=== PATIENT | male | born 1980 | race Caucasian/White ===

== ENCOUNTER 2020-07-12 15:24 | Emergency (ER) | payer MEDICAID ==
[~2020-07-12] VITALS: Ht 170.2 cm; Wt 65.8 kg
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
--- NOTE | 2020-07-12 15:55 | Emergency Room Report ---
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 Patient reports that he was given hydrocodone however did not take one yesterday did not work. Also reports he does not want any pain medication at ED. Has not been able to follow-up with orthopedist yet. Denies any numbness and tingling. Denies any saddle paresthesia, urinary bowel incontinence. Reports that he fell few weeks ago and started having more pain since. Has been bearing weight on the affected side. Request crutches. Denies chest pain, shortness of breath. Allergies: Coded Allergies: No Known Allergies (Unverified , 07/12/20) COVID-19 Screening Contact w/high risk pt: No Experienced COVID-19 symptoms?: No COVID-19 Testing performed [employer] SPECIALIST: No Patient History Past Medical History: see triage record Past Surgical History: none Pertinent Family History: none Immunizations: UTD Reviewed Nursing Documentation: PMH: Agreed; PSxH: Agreed Nursing Documentation-PMH Past Medical History: No History, Except For Review of Systems All Other Systems: negative except mentioned in HPI Physical Exam Vital Signs Date Time Temp Pulse Resp B/P (MAP) Pulse Ox O2 Delivery O2 Flow Rate FiO2 07/12/20 15:28 98.1 91 18 98/63 (75) 96 Room Air Sp02 EP Interpretation: reviewed, normal General Appearance: no apparent distress, alert, GCS 15, non-toxic Head: normocephalic, atraumatic Eyes: bilateral eye normal inspection, bilateral eye PERRL ENT: hearing grossly normal, normal pharynx, no angioedema, normal voice Neck: full range of motion, supple/symm/no masses Respiratory: chest non-tender, lungs clear, normal breath sounds, no rhonchi, no respiratory distress, no retraction, no accessory muscle use, no wheezing, speaking full sentences Cardiovascular #1: regular rate, rhythm, no edema Cardiovascular #2: 2+ carotid (R), 2+ carotid (L), 2+ radial (R), 2+ radial (L), 2+ dorsalis pedis (R), 2+ dorsalis pedis (L) Gastrointestinal: normal bowel sounds, non tender, soft, non-distended, no guarding, no rebound Genitourinary: no CVA tenderness Musculoskeletal: back normal, no calf tenderness, pelvis stable, non-tender Neurologic: alert, motor strength/tone normal, oriented x3, sensory intact, responsive, speech normal Psychiatric: judgement/insight normal, memory normal, mood/affect normal, no suicidal/homicidal ideation Skin: no rash Lymphatic: no adenopathy Medical Decision Making PA Attestation All diagnoses and treatment plans were reviewed and discussed with my supervising physician Dr. 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 Patient reports that he was given hydrocodone however did not take one yesterday did not work. Also reports he does not want any pain medication at ED. Has not been able to follow-up with orthopedist yet. Denies any numbness and tingling. Denies any saddle paresthesia, urinary bowel incontinence. Reports that he fell few weeks ago and started having more pain since. Has been bearing weight on the affected side. Request crutches. Denies chest pain, shortness of breath. Ddx considered but are not limited to: Femoral neck fracture, sprain, hardware fracture, complication infection secondary to hardware malfunction Vital signs: are WNL, pt. is afebrile H&PE are most consistent with: failed hardware ORDERS: left hip. Oxycodone, Ibuprofen ED INTERVENTIONS: Crutches DISCHARGE: At this time pt. is stable for d/c to home. Will provide printed patient care instructions, and any necessary prescriptions. Care plan and follow up instructions have been discussed with the patient prior to discharge. Patient was given information to orthopedic urgent care, advised to follow primary doctor for referral to orthopedics, worsening symptoms return to the emergency room Other X-Ray Diagnostic Results Other X-Ray Diagnostic Results : X-Ray ordered: Left hip # of Views/Limited Vs Complete: 1 View Indication: Pain EP Interpretation: Yes SANDEEP Xray: Interpretation reviewed, by supervising MD, and agrees with findings. Interpretation: no dislocation, no soft tissue swelling, no fractures Impression: Other - Hardware fracture Electronically Signed by: Angeline Casper PA-C Last Vital Signs Date Time Temp Pulse Resp B/P (MAP) Pulse Ox O2 Delivery O2 Flow Rate FiO2 07/12/20 15:28 98.1 91 18 98/63 (75) 96 Room Air Disposition: HOME, SELF-CARE Condition: Stable Scripts Ibuprofen (Ibu) 800 Mg Tablet 800 MG PO TID, #30 TAB Prov: Angeline Doan 07/12/20 Oxycodone Hcl/Acetaminophen 10-325* (OXYCODONE-ACETAMINOPHEN 10-325*) 1 Each Tablet 1 TAB ORAL Q8H PRN for For Pain for 3 Days, #10 TAB 0 Refills Prov: Angeline Doan 07/12/20 Referrals: [facility],REFERRING (PCP) Patient Instructions: Hardware Removal, Care After Angeline Doan Jul 12, 2020 15:55
[2020-07-12] MEDS ORDERED: IBU800 MG PO (15:56)
[2020-07-12] MEDS ORDERED: OXYCODONE-ACET1 EAC5 ORAL (15:56)
--- NOTE | 2020-07-12 16:00 | NUR ---
ER DISCHARGE NOTE: Patient is cleared to be discharged per ERMD, pt is aox4, on room air, with stable vital signs. pt was given dc and prescription instructions, pt was able to verbalize understanding, pt id band removed. pt is able to ambulate with steady gait. pt took all belongings. Pt instructed on f/u with ortho as well.
[2020-07-12 16:01] VITALS: BP 102/64
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
== END 2020-07-12 16:02 | disposition home or self-care (01) ==
LOC: EMR 15:50
DX: T84.89XA Other specified complication of internal orthopedic prosthetic devices, implants and grafts, initial encounter (principal); X58.XXXA Exposure to other specified factors, initial encounter; Z91.81 History of falling
CPT/HCPCS: 73501; Z7502; 99283